=== PATIENT | male | born 1935 | race Caucasian/White ===

== ENCOUNTER → 2018-11-10 13:35 | Outpatient (BNVA) | payer MEDICARE, SELFPAY | PROVIDERS: Visit Provider Urology | DX: Z46.6 Encounter for fitting and adjustment of urinary device (principal); N35.919 Unspecified urethral stricture, male, unspecified site | CPT/HCPCS: 51702; 51798; 99203 ==

== ENCOUNTER → 2018-11-14 09:45 | Outpatient (BNVA) | payer MEDICARE, SELFPAY | PROVIDERS: Visit Provider Urology | DX: N35.919 Unspecified urethral stricture, male, unspecified site (principal); Z96.0 Presence of urogenital implants; Z87.442 Personal history of urinary calculi; R31.9 Hematuria, unspecified | CPT/HCPCS: 52000; 99213 ==

== ENCOUNTER 2018-12-15 07:44 | Outpatient (CLI) | payer MEDICARE, SELFPAY ==
--- NOTE | 2018-12-15 14:26 | DI.US_ITS ---
SYMPTOM/DIAGNOSIS: R/O MASS, HYDRONEPHROSIS, STONE R31.9 RENAL ULTRASOUND: The right kidney measures 10.7 cm. The left kidney 11.4 cm. There is normal cortical thickness. There is no evidence of a cyst, mass or hydronephrosis or acoustical evidence of nephrolithiasis. Pre-void bladder contains 143 cc. Bilateral ureteral jets were visualized. The post void bladder contains 11 cc. SUMMARY: Normal renal ultrasound.
== END 2018-12-15 08:04 ==
PROVIDERS: Visit Provider Urology
DX: R31.29 Other microscopic hematuria (principal); N13.30 Unspecified hydronephrosis
CPT/HCPCS: 76770

== ENCOUNTER → 2018-12-29 09:10 | Outpatient (BNVA) | payer MEDICARE, SELFPAY | PROVIDERS: Visit Provider Urology | DX: N35.919 Unspecified urethral stricture, male, unspecified site (principal); R31.29 Other microscopic hematuria | CPT/HCPCS: 81003; 99213 ==

== ENCOUNTER 2024-09-11 18:46 | Outpatient (REF) | payer MEDICARE, SELFPAY ==
[2024-09-11 21:17] LABS: HCT 35.6 % (40.0-50.0); HGB 11.6 g/dL (13.5-17.5); MCH 31.8 pg (27.0-33.0); MCHC 32.6 % (32.0-36.0); MCV 98 fL (80-95); MPV 11.1 fL (8.0-11.0); Platelet Count 265 10^3/uL (130-400); RBC 3.65 10^6/uL (4.36-5.78); RDW 12.6 % (11.8-14.1); RDW-SD 45.4 fL; WBC 6.63 10^3/uL (4.4-10.8)
[2024-09-11 21:36] LABS: COMMENT (LAB VIEW ONLY) 40.46 mg/dL
[2024-09-11 21:39] LABS: ALT 18 U/L (16-63); AST 24 U/L (15-37); Albumin 3.3 g/dL (3.4-5.0); Alkaline Phosphatase 104 U/L (46-116); Anion Gap 7.7 mmol/L (3-11); BUN 70 mg/dL (7-18); Bilirubin, Total 0.24 mg/dL (0.2-1.0); CO2 28.3 mmol/L (21.0-32.0); CREATININE 3.3 mg/dL (0.70-1.30); Calcium 9.2 mg/dL (8.5-10.1); Chloride 103 mmol/L (98-107); Estimated GFR 17.28 (mL/min/1.73m2); Glucose 333 mg/dL (74-106); Potassium 5.1 mmol/L (3.5-5.1); Sodium 139 mmol/L (136-145); Total Protein 7.5 g/dL (6.4-8.2)
== END 2024-09-11 18:47 | disposition home or self-care (01) ==
LOC: NCHCN 18:46
PROVIDERS: PCP Nurse Practitioner Family; Visit Provider Internal Medicine
DX: N18.9 Chronic kidney disease, unspecified (principal)
CPT/HCPCS: 80053; 85027; 82043; 82570

== ENCOUNTER 2024-12-01 14:40 | Outpatient (REF) | payer MEDICARE, SELFPAY ==
[2024-12-01 21:35] LABS: Anion Gap 9.9 mmol/L (3-11); BUN 66 mg/dL (7-18); CO2 27.1 mmol/L (21.0-32.0); Calcium 9.5 mg/dL (8.5-10.1); Chloride 103 mmol/L (98-107); Estimated GFR 15.06 (mL/min/1.73m2); Glucose 201 mg/dL (74-106); PHOSPHORUS 5.3 mg/dL (2.6-4.7); Potassium 5.2 mmol/L (3.5-5.1); Sodium 140 mmol/L (136-145)
[2024-12-01 21:36] LABS: Hemoglobin A1C 10.2 % (<5.7)
[2024-12-01 21:42] LABS: CREATININE 3.7 mg/dL (0.70-1.30)
[2024-12-01 22:46] LABS: Vitamin D 25 Total 45.5 ng/mL (30-100)
[2024-12-02 18:26] LABS: Parathyroid Hormone,Intact 356.8 pg/mL (19.0-88.0)
== END 2024-12-01 14:41 | disposition home or self-care (01) ==
LOC: NCHCN 14:40
PROVIDERS: PCP Nurse Practitioner Family; Visit Provider Internal Medicine
DX: E11.9 Type 2 diabetes mellitus without complications (principal); N18.9 Chronic kidney disease, unspecified
CPT/HCPCS: 80048; 82306; 83036; 83970; 84100

== ENCOUNTER 2025-01-15 22:21 | Outpatient (REF) | payer MEDICARE, SELFPAY ==
[2025-01-15 14:19] LABS: HCT 36.2 % (40.0-50.0); HGB 11.7 g/dL (13.5-17.5); MCH 31.9 pg (27.0-33.0); MCHC 32.3 % (32.0-36.0); MCV 99 fL (80-95); MPV 11.4 fL (8.0-11.0); Platelet Count 221 10^3/uL (130-400); RBC 3.67 10^6/uL (4.36-5.78); RDW 12.7 % (11.8-14.1); RDW-SD 45.9 fL; WBC 7.43 10^3/uL (4.4-10.8)
[2025-01-15 14:30] LABS: Anion Gap 7.7 mmol/L (3-11); BUN 62 mg/dL (7-18); CO2 28.3 mmol/L (21.0-32.0); CREATININE 3.4 mg/dL (0.70-1.30); Calcium 9.5 mg/dL (8.5-10.1); Chloride 104 mmol/L (98-107); Estimated GFR 16.67 (mL/min/1.73m2); Glucose 162 mg/dL (74-106); PHOSPHORUS 4.9 mg/dL (2.6-4.7); Potassium 4.7 mmol/L (3.5-5.1); Sodium 140 mmol/L (136-145)
== END 2025-01-15 22:22 | disposition home or self-care (01) ==
LOC: NCHCN 22:21
PROVIDERS: PCP Nurse Practitioner Family; Visit Provider Family Medicine
DX: N18.9 Chronic kidney disease, unspecified (principal)
CPT/HCPCS: 80048; 85027; 84100

== ENCOUNTER 2025-06-01 15:18 | Outpatient (REF) | payer MEDICARE, SELFPAY ==
[2025-06-01 15:51] LABS: HCT 32.3 % (40.0-50.0); HGB 10.6 g/dL (13.5-17.5); MCH 32.4 pg (27.0-33.0); MCHC 32.8 % (32.0-36.0); MCV 99 fL (80-95); MPV 12.1 fL (8.0-11.0); Platelet Count 213 10^3/uL (130-400); RBC 3.27 10^6/uL (4.36-5.78); RDW 13.6 % (11.8-14.1); RDW-SD 49.1 fL; WBC 6.39 10^3/uL (4.4-10.8)
[2025-06-01 16:27] LABS: Iron 88 ug/dL (65-175); Total Iron Binding Capacity 269 ug/dL (250-450); Transferrin Sat 33 % (20-55)
[2025-06-01 16:31] LABS: ALT 33 U/L (16-63); AST 31 U/L (15-37); Albumin 3.4 g/dL (3.4-5.0); Alkaline Phosphatase 83 U/L (46-116); Anion Gap 8.2 mmol/L (3-11); BUN 58 mg/dL (7-18); Bilirubin, Total 0.4 mg/dL (0.2-1.0); CO2 25.8 mmol/L (21.0-32.0); Calcium 9.3 mg/dL (8.5-10.1); Chloride 106 mmol/L (98-107); Estimated GFR 19.37 (mL/min/1.73m2); Glucose 120 mg/dL (74-106); Potassium 4.7 mmol/L (3.5-5.1); Sodium 140 mmol/L (136-145); Total Protein 6.9 g/dL (6.4-8.2)
[2025-06-01 16:59] LABS: Ferritin 106 ng/mL (26-388)
[2025-06-01 17:16] LABS: Hemoglobin A1C 7.7 % (<5.7)
== END 2025-06-01 15:19 | disposition home or self-care (01) ==
LOC: NCHCN 15:18
PROVIDERS: PCP Nurse Practitioner Family; Visit Provider Internal Medicine
DX: E11.9 Type 2 diabetes mellitus without complications (principal)
CPT/HCPCS: 80053; 85027; 82728; 83036; 83540; 83550; 83970; 84100

== ENCOUNTER 2025-09-03 13:18 | Outpatient (REF) | payer MEDICARE, MEDICAID, SELFPAY ==
[2025-09-03 15:30] LABS: HCT 33.9 % (40.0-50.0); HGB 11.1 g/dL (13.5-17.5); MCH 32.6 pg (27.0-33.0); MCHC 32.7 % (32.0-36.0); MCV 100 fL (80-95); MPV 11.5 fL (8.0-11.0); Platelet Count 212 10^3/uL (130-400); RBC 3.40 10^6/uL (4.36-5.78); RDW 13.3 % (11.8-14.1); RDW-SD 49.5 fL; WBC 6.35 10^3/uL (4.4-10.8)
[2025-09-03 16:06] LABS: Hemoglobin A1C 7.0 % (<5.7)
[2025-09-03 17:28] LABS: Anion Gap 10.4 mmol/L (3-11); BUN 47 mg/dL (9-23); CO2 23.6 mmol/L (20.0-31.0); Calcium 9.1 mg/dL (8.3-10.6); Chloride 109 mmol/L (98-107); Cholesterol 115 mg/dL (<200); Glucose 163 mg/dL (74-106); HDL Cholesterol 44 mg/dL (>40); Potassium 4.8 mmol/L (3.5-5.1); Sodium 143 mmol/L (136-145)
== END 2025-09-03 13:19 | disposition home or self-care (01) ==
LOC: NCHCN 13:18
PROVIDERS: PCP Nurse Practitioner Family; Visit Provider Internal Medicine
DX: N18.4 Chronic kidney disease, stage 4 (severe) (principal); E11.9 Type 2 diabetes mellitus without complications; I25.10 Atherosclerotic heart disease of native coronary artery without angina pectoris
CPT/HCPCS: 80048; 80061; 85027; 83036

== ENCOUNTER 2025-09-06 21:20 | Outpatient (REF) | payer MEDICARE, MEDICAID, SELFPAY ==
[2025-09-06 22:51] LABS: Microalb ug/mg Crea 569.7 ug/mg Cr
== END 2025-09-06 21:21 | disposition home or self-care (01) ==
LOC: NCHCN 21:20
PROVIDERS: PCP Nurse Practitioner Family; Visit Provider Internal Medicine
DX: E11.9 Type 2 diabetes mellitus without complications (principal)
CPT/HCPCS: 82043; 82570